=== PATIENT | female | born 1965 | race Caucasian/White ===

== ENCOUNTER → 2018-08-16 | Outpatient (CLI) | payer BC ==
[~2018-08-16] MED LIST: AMBIEN 5MG TABLE5 MG PO; B-121000 MCG PO; MULTIVITAMIN FO1 CAP PO; TYLENOL EXTRA500 M1 PO; VITAMIN C500 MG PO
== END ==
LOC: COL.RAD 13:01
DX: S63.591A Other specified sprain of right wrist, initial encounter (principal); M65.821 Other synovitis and tenosynovitis, right upper arm; M77.9 Enthesopathy, unspecified
CPT/HCPCS: A9585; Q9967